=== PATIENT | male | born 1950 | race Caucasian/White ===

== ENCOUNTER 2019-05-17 08:23 | Inpatient (IN) ==
[2019-05-11 10:46] LABS: Estimated Average Glucose(eAG) 126 mg/dL
[2019-05-11 10:49] LABS: Appearance,Urine CLEAR; Bacteria,Urine 0 /hpf (0); Bilirubin,Urine NEG (NEG); Blood Urea Nitrogen 18 mg/dl (8-23); Calcium 10.1 mg/dl (8.6-10.4); Carbon Dioxide 25 mmol/L (22-30); Chloride 105 mmol/L (96-108); Color,Urine YELLOW; Culture Indicated,Urine NO; Glomerular Filtration Rate 75; Glucose 131 mg/dL (70-105); Glucose,Urine (UA) NEGATIVE (NEG); Ketones,Urine NEG (NEG); Leukocyte Esterase,Urine NEG /uL (NEG); Mucus,Urine MOD /hpf (0); Nitrate,Urine NEG (NEG); Potassium 3.8 mmol/L (3.3-5.1); Protein,Urine 100 mg/dL (NEG); Sodium 141 mmol/L (133-145); Specific Gravity,Urine 1.019 (1.000-1.035); Urine Blood 0.03 mg/dL (<0.03); Urine RBC 36 /hpf (0-1); Urine Squamous Epithelial Cell < 1 /hpf (0-4); Urine WBC 1 /hpf (0-4); Urobilinogen,Urine NEG (NEG)
[2019-05-11 10:59] LABS: Basophils # (Auto) 0.1 K/mcL (0.0-0.3); Basophils % (Auto) 0.6 % (0.0-2.0); Eosinophils # (Auto) 0.3 K/mcL (0.0-0.7); Eosinophils % (Auto) 2.6 % (0.0-7.0); Granulocytes % (Auto) 68.8 % (38.0-78.0); Hematocrit 48.9 % (41.0-55.0); Lymphocytes # (Auto) 1.9 K/mcL (1.5-4.8); Lymphocytes % (Auto) 19.5 % (15.5-49.0); Mean Cell Volume 86.5 fL (80.0-100.0); Mean Corpuscular HGB Conc 32.8 g/dL (31.0-36.0); Monocytes # (Auto) 0.8 K/mcL (0.1-0.9); Monocytes % (Auto) 8.5 % (1.0-12.0); Platelet Count 182 K/mcL (140-440); RBC 5.65 M/mcL (4.50-5.90); Red Cell Distribution Width 13.8 % (11.5-14.5); WBC 9.7 K/mcL (4.5-11.0)
[~2019-05-17 08:23] MED LIST: 0.9 % SODIUM CHLORIDE 9 ML, KETOROLAC 30 MG, ROPIVACAINE HCL/PF 49.5 ML, EPINEPHrine 0.... IJ SCH; CELECOXIB 200 MG CAPSULE PO SCH; PREGABALIN 75 MG CAPSULE PO SCH; ceFAZolin 3 GM in DEXTROSE 5% IN WATER 50 ML IV SCH; oxyCODONE 10 MG TAB.ER.12H PO SCH
[2019-05-17] MEDS ORDERED: ONDANSETRON 4 MG/2 ML VIAL IV ONE (11:30)
[2019-05-17] MEDS ORDERED: PROPOFOL 200 MG/20 ML VIAL IV ONE (11:30)
[2019-05-17] MEDS ORDERED: ROPIVACAINE HCL/PF 20 ML VIAL IJ ONE (11:30)
[2019-05-17] MEDS ORDERED: LIDOCAINE HCL/PF 100 MG/5 ML SYRINGE IV ONE (11:30)
[2019-05-17] MEDS ORDERED: HYDROmorphone 2 MG/ML VIAL IV ONE (11:30)
[2019-05-17] MEDS ORDERED: MIDAZOLAM 2 MG/2 ML VIAL IV ONE (11:30)
[2019-05-17] MEDS ORDERED: fentaNYL 250 MCG/5 ML VIAL IV ONE (11:30)
[2019-05-17] MEDS ORDERED: ePHEDrine 50 MG/ML AMPUL IV ONE (11:30)
[2019-05-17] MEDS ORDERED: DEXAMETHASONE 10 MG/ML VIAL IV ONE (11:30)
[2019-05-17] MEDS ORDERED: IPRATROPIUM/ALBUTEROL 3 ML AMPUL.NEB NEB PRN (12:58)
[2019-05-17] MEDS ORDERED: MEPERIDINE 25 MG/ML SYRINGE IV PRN (12:58)
[2019-05-17] MEDS ORDERED: FLUMAZENIL 0.1 MG/ML ML IV PRN (12:58)
[2019-05-17] MEDS ORDERED: ONDANSETRON 4 MG/2 ML VIAL IV PRN ×2 (12:58→13:17)
[2019-05-17] MEDS ORDERED: ACETAMINOPHEN 1,000 MG/100 ML BOTTLE IV ONE (12:58)
[2019-05-17] MEDS ORDERED: diphenhydrAMINE 50 MG/ML VIAL IV PRN (12:58)
[2019-05-17] MEDS ORDERED: LACTATED RINGERS 250 ML IV PRN (12:58)
[2019-05-17] MEDS ORDERED: NALOXONE HCL 0.4 MG/ML VIAL IV PRN (12:58)
[2019-05-17] MEDS ORDERED: HYDROmorphone 2 MG/ML VIAL IV PRN (12:58)
[2019-05-17] MEDS ORDERED: LACTATED RINGERS 1,000 ML IV SCH (13:00)
[2019-05-17] MEDS ORDERED: MAGNESIUM HYDROXIDE 30 ML ORAL.SUSP PO PRN (13:17)
[2019-05-17] MEDS ORDERED: POLYETHYLENE GLYCOL 3350 17 GM PACKET PO PRN (13:17)
[2019-05-17] MEDS ORDERED: FLEETS ADULT ENEMA PR PRN (13:17)
[2019-05-17] MEDS ORDERED: BENZOCAINE/MENTHOL 1 LOZENGE PO PRN (13:17)
[2019-05-17] MEDS ORDERED: TRANEXAMIC ACID 1,000 MG/10 ML VIAL IV ONE (13:17)
[2019-05-17] MEDS ORDERED: BISACODYL 10 MG SUPP.RECT PR PRN (13:17)
--- NOTE | 2019-05-17 13:17 | Brief Operative Note ---
Date of procedure: 05/17/19 Pre-op diagnosis: Left knee DJD Post-op diagnosis: same Procedure: Left robotic assisted total knee arthroplasty Grafts/Implants: Yes (Segun Triathlon 5 femur, 5 tibia, 10mm insert, 36 patella) Anesthesia: spinal, GLMA Findings: severe arthritis Complications: none Surgeon: Jun Montoya Combat Systems Operator [employer]: Dale Armando Estimated blood loss (cc): 30 Specimens Removed/Pathology: none sent Condition: stable Disposition: PACU
[2019-05-17] MEDS ORDERED: NITROGLYCERIN 0.4 MG TAB.SUBL SL PRN (13:20)
[2019-05-17] MEDS: fentaNYL 100 MCG/2 ML VIAL IV PRN ×4 (13:46→14:22)
--- NOTE | 2019-05-17 13:57 | Operative Note ---
DATE OF OPERATION: 05/17/2019 PREOPERATIVE DIAGNOSIS: Left knee severe osteoarthritis. POSTOPERATIVE DIAGNOSIS: Left knee severe osteoarthritis. PROCEDURE PERFORMED: Left robotic-assisted total knee arthroplasty placing a Segun Triathlon size 5 cruciate retaining femoral component, size 5 tibial baseplate, a 10 mm X3 tibial insert with a 36 mm patellar button. SURGEON: Jun Montoya M.D. MOVIE CRITIC: Galindo Armando PA-C. The PA's assistance was required for the safe and efficient completion of the entire case. This provider's expertise and technical skill were required throughout the case. The PA assisted with preoperative coordination, intraoperative retraction, wound closure, dressing and splint application, as well as postoperative documentation and care coordination. ANESTHESIA: Spinal plus general. DRAINS: None. SPECIMENS: Bone cuts which were discarded. BLOOD LOSS: 30 mL. COMPLICATIONS: None. POSTOPERATIVE CONDITION: Stable. INDICATIONS FOR SURGERY: This is a 69-year-old male with progressive worsening left knee pain. Radiographs showed advanced [id number] osteoarthritis. FINDINGS AT SURGERY: As above. Post implantation showed satisfactory limb alignment, patellar tracking, and joint stability. PROCEDURE IN DETAIL: The patient had been seen preoperatively. Informed consent had been obtained after discussion of risks and benefits of surgery. Risks including, but not limited to, bleeding; infection, possibly requiring implant removal and prolonged IV antibiotics; injury to nerves, blood vessels, and other surrounding structures; anesthetic risks; incomplete or no resolution of symptoms; stiffness; swelling; pain; instability; DVT and pulmonary embolus risks; and the possibility of needing further revision surgery. He understood and wished to proceed. Correct operative site was marked and then patient received spinal anesthesia. He was then taken to the operating room and LMA general given. Ioban was used to cover all skin surfaces and then Esmarch was used to exsanguinate the extremity and tourniquet was inflated to 350 mmHg. Midline incision was made with a scalpel through skin and subcutaneous tissue. Irrisept was irrigated and then a medial parapatellar arthrotomy made. Subperiosteal exposure was done of the anterior medial tibia and then ACL was transected, as well as anterior horns of the menisci were removed. Retropatellar fat pad was excised, and the patella was then cut, first measuring and then a free hand resection in which 11 mm of bone was removed. A 36 cut protector was placed. We then placed our two femoral pins and two tibial pins, first making stab incisions and then connecting the arrays. After the pins were placed, femoral and tibial checkpoints were placed. We then did our hip center of rotation check. Green probe was taken to the medial and lateral malleoli and then double-checks of the femoral and tibial checkpoints. Blue probe was used to do our mapping. He had minimal osteophytes to remove, so we then went to the flexion-extension gap testing. In extension, we had 17 medial and 22 lateral. In flexion, we were 17 and 17. I added a total of 4 degrees of varus on the femoral component in extension to give us a final of 19 mm. We then used the robotic arm to make our bone cuts. Tibial baseplate trial was positioned and externally rotated as bone coverage would allow. This was pinned into place and a boss reamer and keel punch used to prepare. This was removed and a keeled tibial trial was placed. We elevated the femur and removed posterior osteophytes with a curved osteotome and curet. We then placed the femoral component. This was pinned into place and peg holes were drilled and a 9 insert trial was placed. The knee was taken into extension. He went all the way to 0. We then prepared our patella with a 36 and medialized maximally. Holes were drilled and then patellar trial placed. A lateral facetectomy was performed. We checked our patellar tracking which was good, so we went ahead and removed trial implants. Definitive implants were opened except for the insert. We removed the checkpoints. Antibiotic cement was mixed while we filled the joint with Irrisept, after a minute pulse lavaged with saline. We then cemented the tibia and excess cement removed. We cemented the femur and excess cement removed. A 9 insert trial was placed. The knee was taken into extension and the patellar button was cemented. We then filled the joint with Irrisept and held it in full extension. We then injected the pain cocktail into the subcutaneous and pericapsular tissues. Once cement had fully hardened, we flexed the knee up and removed any excess cement with an osteotome. We then removed the 9 insert trial, irrigated Irrisept into the tray, and then opened a 10 insert as he went all the way to full extension. The 10 insert was impacted and fully seated. The knee still had full range of motion with good stability. We filled the joint with Irrisept again, after waiting a minute pulse lavaged with saline, and then the knee was placed in about 45 degrees of flexion. Interrupted #2 FiberWire [id number] were used around the superior quadrant of the patella, interrupted #1 Vicryl [id number] around the inferior quadrant, running #1 Vicryl was used for patellar tendon and quad tendon. A final Irrisept irrigation was done, after a minute final pulse lavage, then 2-0 Monocryl for subcutaneous and brian for skin. Xeroform and sterile dressing were applied. Tourniquet was released. The patient was awakened, extubated, and transferred to recovery in stable condition. [email or web address] ann Job ID: [id number] Doc ID: [id number] Jun Montoya MD
[2019-05-17] MEDS ORDERED: LORazepam 2 MG/ML VIAL IV PRN (14:16)
[2019-05-17] MEDS ORDERED: LORazepam 2 MG/ML VIAL IV ONE (14:16)
[2019-05-17] MEDS ORDERED: LORazepam 2 MG/ML VIAL ONE (14:17)
--- NOTE | 2019-05-17 14:37 | XRay Report ---
CLINICAL INFORMATION: Left knee replacement TECHNIQUE: Portable AP, crosstable lateral, patellar views COMPARISON: None. FINDINGS: Status post left total knee arthroplasty. Femoral and tibial components are in anatomic positions. There is postoperative soft tissue and intra-articular gas IMPRESSION: Status post left total knee arthroplasty Interpreted and Authenticated by: Judson Maynard 05/17/19
[2019-05-17] MEDS: 0.9 % SODIUM CHLORIDE 1,000 ML IV SCH (15:07)
[2019-05-17] MEDS: HYDROmorphone 2 MG/ML VIAL IV PRN (15:07)
[2019-05-17] MEDS: 0.9 % SODIUM CHLORIDE 10 ML SYRINGE IV SCH ×2 (15:49→20:33)
[2019-05-17] MEDS: KETOROLAC 15 MG/ML VIAL IV SCH (18:43)
[2019-05-17] MEDS ORDERED: ceFAZolin 1 GM VIAL ONE (19:45)
[2019-05-17] MEDS: ceFAZolin 1 GM VIAL IV SCH (19:50)
[2019-05-17] MEDS: DOCUSATE SODIUM 100 MG CAPSULE PO SCH (20:32)
[2019-05-17] MEDS: METOPROLOL TARTRATE 50 MG TABLET PO SCH (20:32)
[2019-05-17] MEDS: ASPIRIN 81 MG TAB.CHEW PO SCH (20:32)
[2019-05-17] MEDS: LISINOPRIL 20 MG TABLET PO SCH (20:32)
[2019-05-17] MEDS ORDERED: SENNOSIDES 1 TABLET PO SCH (21:00)
[2019-05-17] MEDS: HYDROcodone/APAP 10/325MG TABLET PO PRN (23:13)
[2019-05-18] MEDS: KETOROLAC 15 MG/ML VIAL IV SCH ×2 (00:26→06:03)
[2019-05-18] MEDS: HYDROmorphone 2 MG/ML VIAL IV PRN (00:32)
[2019-05-18] MEDS: 0.9 % SODIUM CHLORIDE 1,000 ML IV SCH (00:35)
[2019-05-18] MEDS: HYDROcodone/APAP 10/325MG TABLET PO PRN ×3 (03:12→10:34)
[2019-05-18] MEDS: ceFAZolin 1 GM VIAL IV SCH (03:49)
[2019-05-18] MEDS: 0.9 % SODIUM CHLORIDE 10 ML SYRINGE IV SCH (05:35)
--- NOTE | 2019-05-18 08:23 | Discharge Summary ---
Providers - Providers Patient information: Note initiated : 05/18/19 at 8:21 am Service Date, if different from initiated Date: [] Patient: Lion Batista 69 y/o M admitted on 05/17/19 for Left Total Knee Arthroplasty Attila . Chief Complaint: [] Discharge date: 05/18/19 Hospitalization Hospital course: Pt was admitted for a L TKA. Pt underwent the procedure on the day of admission. Pt spent one night on the floor for IV pain meds, IV abx, and PT. Pt discharged post-op day one. Will attend out-ot PT. Will resume his plavix on post-op day two. Discharge diagnosis: L knee OA Exam - Exam Clean and dry: Yes Ortho Discharge - TKA - Patient Instructions Diet: Regular Diet Activity: activity as tolerated Total Knee Protocol: For Total Knee: Start ROM ALLA with stationary bike or rocking chair. Work on gaining full extension of knee. Posterior dislocation precautions provided. Hip abductor strengthening and gait training instructions provided. Apply Cryocuff as instructed. Dressing Care: May shower in 2 days - Follow Up Plan Follow Up Appointments: Dale Armando PA-C [Physician [employer]] - 06/01/19 10:40 am Disposition: Home, Self-Care Prognosis: Good Rehab Potential: Good Overall status at discharge: patient is back to baseline - Orders For Discharge Prescriptions: HYDROcodone/APAP 10/325MG [Usk 10-325Mg] 1 - 2 tab PO Q4HP PRN #80 tab PRN Reason: Pain Level 3-6 Pending Studies Resuscitation Status Full Code Diet Consistent Carbohydrate Diet Start WedMay 17 1318 Hydrocodone Bitart/Acetaminophen (Usk 10/325mg) 0 tab PO Q4HP PRN PRN Reason: PAIN LEVEL 3-6 Last Admin: 05/18/19 07:12 Dose: 2 tab Documented by: [email or web address] Admin: 05/18/19 03:12 Dose: 2 tab Documented by: Admin: 05/17/19 23:13 Dose: 2 tab Documented by: PAOLA Aspirin (Aspirin) 81 mg PO BID [facility] Last Admin: 05/17/19 20:32 Dose: 81 mg Documented by: PAOLA Docusate Sodium (Colace) 100 mg PO BID [facility] Last Admin: 05/17/19 20:32 Dose: 100 mg Documented by: PAOLA Hydromorphone HCl (Dilaudid) 0 mg IV Q2HP PRN PRN Reason: PAIN LEVEL > 6 Last Admin: 05/18/19 00:32 Dose: 1 mg Documented by: Admin: 05/17/19 15:07 Dose: 1 mg Documented by: ERASMO Sodium Chloride (Sodium Chloride 0.9%) 1,000 mls @ 100 mls/hr IV .Q10H [facility] Last Admin: 05/18/19 00:35 Dose: 100 mls/hr Documented by: Infusion: 05/18/19 00:35 Dose: 100 mls/hr Documented by: Admin: 05/17/19 15:07 Dose: 100 mls/hr Documented by: ERASMO Ketorolac Tromethamine (Toradol) 15 mg IV Q6 [facility] Stop: 05/19/19 12:01 Last Admin: 05/18/19 06:03 Dose: 15 mg Documented by: Admin: 05/18/19 00:26 Dose: 15 mg Documented by: Admin: 05/17/19 18:43 Dose: 15 mg Documented by: ERASMO Lisinopril (Zestril) 20 mg PO BID [facility] Last Admin: 05/17/19 20:32 Dose: 20 mg Documented by: PAOLA Lorazepam (Ativan) 0.5 mg IV Q15MIN PRN PRN Reason: ANXIETY/SEDATION Last Admin: 05/17/19 14:18 Dose: 0.5 mg Documented by: [email or web address] Metoprolol Tartrate (Lopressor) 50 mg PO BID [facility] Last Admin: 05/17/19 20:32 Dose: 50 mg Documented by: PAOLA Senna (Senokot) 2 tab PO HS [facility] Last Admin: 05/17/19 20:32 Dose: 2 tab Documented by: PAOLA Sodium Chloride (Saline Flush) 10 ml IV Q8 [facility] Last Admin: 05/18/19 05:35 Dose: Not Given Documented by: Admin: 05/17/19 20:33 Dose: Not Given Documented by: Admin: 05/17/19 15:49 Dose: Not Given Documented by: ERASMO Shift Summary 05/18/19 03:25 Shift Summary by Ifeanyi Dobbs Pt has not slept tonight. LT knee pain fairly well controlled. Usk 10 (2) PO given last @ 0310. Dilaudid 1mg IV given x1 @ 0030. Cryo-cuff on x1 - declined when offered again. Celestine wrap LT knee - C,D,I. NS infusing to his RT hand @ 100ml/hr. Pt has not been able to void - straight cath for 500ml @ 2230. Last bladder scan @ 0250 was 29ml. Pt states he has chronic dizziness when up - he has only been able to AMB to the door of his Rm & back to bed x1. Up to BSC & recliner w/ FWW & CGA - mostly stable - currently up in recliner. Pt's has been @ bedside all shift. VS - WNL w/ O2 - he has been wearing 3L via N/C most of the shift - also wore his CPAP w/ 5L O2 for short periods. He is A&O x4, calm, pleasant, & cooperative. Initialized on 05/18/19 03:25 - END OF NOTE
[2019-05-18] MEDS ORDERED: PUMPKIN SEED OIL PO SCH (09:00)
[2019-05-18] MEDS ORDERED: [UNRECOGNIZED DRUG - OTHER] PO SCH (09:00)
[2019-05-18] MEDS ORDERED: HYDROCHLOROTHIAZIDE 25 MG TABLET PO SCH (09:00)
[2019-05-18] MEDS ORDERED: VITAMIN E (DL,TOCOPHERYL ACET) 400 UNIT CAPSULE PO SCH (09:00)
[2019-05-18] MEDS ORDERED: TAMSULOSIN 0.4 MG CAPSULE PO SCH (09:00)
[2019-05-18] MEDS ORDERED: GLUCOSAMINE/CHONDROITIN SULF A 1 CAP CAPSULE PO SCH (09:00)
[2019-05-18] MEDS ORDERED: FLUTICASONE PROPIONATE SPRAY.NAS NS SCH (09:00)
[2019-05-18] MEDS ORDERED: ASCORBIC ACID 500 MG TABLET PO SCH (09:00)
[2019-05-18] MEDS ORDERED: SAW PALMETTO PO SCH (09:00)
[2019-05-18] MEDS ORDERED: MULTIVIT,THER IRON,CA,FA & MIN 1 TABLET PO SCH (09:00)
[2019-05-18] MEDS ORDERED: FEXOFENADINE 180 MG TABLET PO SCH (09:00)
[2019-05-18] MEDS ORDERED: VITAMIN B COMPLEX 1 CAPSULE PO SCH (09:00)
[2019-05-18] MEDS ORDERED: VITAMIN D3 1,000 UNIT TABLET PO SCH (09:00)
[2019-05-18] MEDS ORDERED: FINASTERIDE 5 MG TABLET PO SCH (09:00)
[2019-05-18] MEDS: METOPROLOL TARTRATE 50 MG TABLET PO SCH (09:27)
[2019-05-18] MEDS: DOCUSATE SODIUM 100 MG CAPSULE PO SCH (09:27)
[2019-05-18] MEDS: LISINOPRIL 20 MG TABLET PO SCH (09:27)
[2019-05-18] MEDS: ASPIRIN 81 MG TAB.CHEW PO SCH (09:27)
== END 2019-05-18 10:45 | disposition home or self-care (01) | DRG 470 ==
LOC: MEDSUR 08:23
PROVIDERS: ADMIT Orthopaedic Surgery; ATTEND Orthopaedic Surgery